=== PATIENT | male | born 1960 | race Caucasian/White ===

== ENCOUNTER 2024-08-06 06:25 | Emergency (ER) | payer SELFPAY ==
[2024-08-06 06:25] VITALS: BP 0/0; PULSE 0; RESP 0; TEMP 35; O2SAT 0
[2024-08-06 06:40] LABS: Glucose Point of Care 248 mg/dl (65-105)
--- NOTE | 2024-08-06 06:55 | ED.CPR ---
HPI - CPR General Chief Complaint: Cardiac Arrest/CPR Stated Complaint: Unresponsive Time Seen by Provider: 08/06/24 06:42 Source: EMS Mode of arrival: EMS Limitations: clinical condition History of Present Illness HPI narrative: patient is a 64 year old male that was brought in in full cardiac arrest with CPR. He was found around 5:00 a.m. by the family who is the nephew and he was alive sitting in his chair but barely responsive and not breathing very good. EMS got the patient quickly and brought to the truck and started CPR. He had asystole and pulseless most of the time but did have 1 bout of VFib that was shocked but continued pulseless. He was given amiodarone at that time as well. Further he has been given epi and CPR. He was brought to the ER and we did over 20 minutes of continued CPR at pulseless asystole with epinephrine and bicarb and D50. His blood sugar was 40 and further came to 248 after sugar replacement. MD complaint: stopped breathing ( Patient was initially breathing and alive but went into cardiac arrest being transported to the ER.) Onset (ago): hour(s) ( Two) Timing confirmed by: family member ( nephew) Place: home Number of shocks delivered: 1 Initial findings in the field: lethargic and sinus rhythm ROSC in the field: No Associated injuries: Yes ( patient fell yesterday and landed on his head. No blood thinners.) Associated symptoms: other ( None) Known history of: other ( alcoholism per family) Treatments prior to arrival: intubation ( LMA), BMV, chest compressions, defibrillated shocks # ( 1), epinephrine mgs #, amiodarone and glucose Review of Systems Review of Systems: All systems reviewed & are unremarkable except as noted in HPI and below Constitutional: Constitutional: Reports no additional constitutional complaints Eyes: Eyes: Reports no additional eye complaints ENT: Reports system reviewed and no additional complaints, except as documented Cardiovascular: Cardiovascular: Reports no additional cardiovascular complaints Respiratory: Respiratory: Reports no additional respiratory complaints Gastrointestinal: Gastrointestinal: Reports no additional gastrointestinal complaints Genitourinary: Genitourinary: Reports no additional male genitourinary complaints Musculoskeletal: Musculoskeletal: Reports no additional musculoskeletal complaints Integumentary/Breasts: Skin/Breast: Reports system reviewed and no additional complaints, except as docu Neurologic: Reports system reviewed and no additional complaints, except as documented Psychiatric: Psychiatric: Reports no additional psychiatric complaints Endocrine: Endocrine: Reports no additional endocrine complaints Hematologic/Lymphatic: Hematologic/Lymphatic: Reports no additional hematologic/lymphatic complaints Allergic/Immunologic: Allergic/Immunologic: Reports no additional allergic/immunologic complaints Exam Const: General: ill appearing ( blood coming from his oral cavity and the ET tube on arrival to the ER) acutely Orientation/consciousness: confusion ( unconscious) Limitations: other limitations ( clinical condition) HENMT: Head: contusion and hematoma Ears: external ears normal Face/Nose/Sinus: Normal external nose present Face and sinus: normal facial exam Mouth: Yes Normal oral and palatal mucosa present Eyes: Conjunctivae: conjunctivae normal Neck: Neck: normal visual inspection Chest: Chest palpation & inspection: normal inspection of the chest Resp: Effort & Inspection: abnormal respiratory effort Auscultation: clear to auscultation bilaterally ( while BVM) Cardio: Rate: abnormal rate Rhythm: abnormal rhythm Heart sounds: no murmurs Other: CPR GI: Inspection: distended GI Palp: Yes Soft to palpation and No Firmness to palpation present (GI) Auscultation: bowels sounds not normal : General: Yes bladder normal to palpation Skin: General skin exam: pallor ( solitario color) Rashes: no rashes Wounds: no wounds Extrem: General: normal to inspection Procedures Other Procedure Procedure 1: Other Procedure: I did not change the ET tube as there was blood everywhere and coming from the oral cavity full with blood; the LMA was working appropriately and only in for a short period of time right lower extremity anterior aviles I/O placed by me with good results; area was cleaned with alcohol and drilled into place with good return of blood and forward push of normal saline MDM - Cardiac Arrest/CPR MDM Narrative Medical decision making narrative: patient is a 64-year-old male with cardiac arrest on entry to the ER. CPR was done with ACLS protocol. Patient did not survive and he has . Time of was 6:37 a.m. Asystole on the monitor. Pulseless. No reflexes. No deep sensation movement. Family notified. [employer] case as we did not know any information on this patient. See code notes and nursing notes. Lab Data Attestation: I reviewed the patient's lab results. Labs: Lab Results 08/06/24 Range/Units 06:34 POC Capillary Glucose 248 H (65-105) mg/dl Discharge Plan Discharge Clinical Impression: Cardiac arrest, Sudden cardiac Patient Disposition: Condition: Patient Language: Maltese Follow-up/Referrals: UNKNOWN,DOCTOR [Non-Staff] - Time of Disposition: 07:09
--- NOTE | 2024-08-06 06:55 | PC.NURSE ---
NEPHEW WAS BROUGHT BACK TO THE QUIET ROOM. DR CASEY EXPLAINED TO NEPHEW THAT ALL LIFE SAVING MEASURES WERE COMPLETED BUT PATIENT REMAINED ASYSTOLE. NEPHEW IS NOW BACK IN THE WAITING NOTIFYING OTHER FAMILY MEMBERS
--- NOTE | 2024-08-06 07:01 | PC.NURSE ---
Pt cleaned, linens changed, pt covered with sheet for family viewing.
--- NOTE | 2024-08-06 07:15 | PC.NURSE ---
Pt's nephew, Chase Josh, present. Declines pt viewing. Signed Body Removal Form. States that [facility] should be contacted. Nephew declines to take pt's belongings. They will go with pt to home.
--- NOTE | 2024-08-06 07:27 | PC.NURSE ---
0710: [employer] Operator, Chivo Rosario, arrived. 0727: [employer] Operator releases body to home.
--- NOTE | 2024-08-06 08:10 | PC.NURSE ---
IV, IO, LMA removed from pt. Pt placed in a post mortem bag. ID tags placed.
--- NOTE | 2024-08-06 08:12 | PC.NURSE ---
[facility], called. Said he will arrive to cone picker body in 30-45 mins.
== END 2024-08-06 10:30 | disposition expired ==
PROVIDERS: Emergency Provider Emergency Medicine; PCP Internal Medicine
DX: I46.9 Cardiac arrest, cause unspecified (principal)
CPT/HCPCS: 36680; 82948; 92950; 96372; 96374; 99285; J0171; J7030